=== PATIENT | male | born 1990 | race Caucasian/White ===

== ENCOUNTER 2023-10-11 04:54 | Emergency (ER) | payer BC, SELFPAY ==
--- NOTE | ~2023-10-11 | XR_ITS ---
Left Shoulder Technique: AP and scapular Y views were obtained. Clinical History: Dislocation Findings: There is anteroinferior dislocation of the left humeral head. AC joint intact. No fracture evident. Soft tissues are unremarkable. Impression: Anteroinferior dislocation of the left humeral head. Reviewed, dictated and finalized at location . INTMENT COORDINATOR Impression: Anteroinferior dislocation of the left humeral head.
--- NOTE | ~2023-10-11 | XR_ITS ---
Left Shoulder Technique: AP and scapular Y views were obtained. Clinical History: Post reduction COMPARISON: 10/11/2023 at 5:21 AM Findings: Previously noted dislocation appears to been successfully reduced. Osseous alignment appear s anatomic.. The glenohumeral and acromioclavicular joint spaces are preserved. Soft tissues are unre markable. Impression: Successful reduction of previously noted humeral head dislocation. No fracture or dislocation seen cu rrently. Reviewed, dictated and finalized at location M. DISHWASHER Impression: Successful reduction of previously noted humeral head dislocation. No fracture or dislocation seen currently.
[2023-10-11 04:58] VITALS: BP 131/92; PULSE 74; RESP 16; TEMP 36.8; O2SAT 94
--- NOTE | 2023-10-11 05:45 | ED.UPPEXIN ---
HPI - Extremity Injury (Upper) General Chief Complaint: Extremity Injury, Upper Stated Complaint: dislocated left shoulder Time Seen by Provider: 10/11/23 05:02 Source: patient Mode of arrival: ambulatory Limitations: no limitations History of Present Illness HPI narrative: this is a 33-year-old male presents with some left shoulder dislocation no known injuries had a dislocation 7 days prior and had reduced in the ER at [facility]. Patient this evening 1 was sleeping and felt his shoulder pop back out of place and became dislocated. There is no known injuries there is no numbness or tingling has a strong brisk radial pulse on the left. Has decreased range of motion secondary to her shoulder pain and dislocation. complaint: injury to: left Onset (ago): hour(s) Other Extremity Injury: Left: shoulder ( left shoulder dislocated) Handedness: right Place: home Severity: moderate Severity scale (1-10): 5 Relieving factors: immobilization Exacerbating factors: movement of extremity Related Data Home Medications Medication Instructions Recorded Confirmed No Home Medications 10/11/23 10/11/23 Allergies Allergy/AdvReac Type Severity Reaction Status Date / Time No Known Allergies Allergy Verified 10/11/23 04:59 Review of Systems Review of Systems: All systems reviewed & are unremarkable except as noted in HPI and below PMFSH Past Medical History Medical History Patient denies medical problems Exam Const: General: healthy appearing Nutritional Appearance: well nourished Orientation/consciousness: patient oriented x3 Limitations: no limitations Neck: Neck: normal visual inspection Chest: Chest palpation & inspection: normal inspection of the chest Resp: Effort & Inspection: normal respiratory effort Auscultation: clear to auscultation bilaterally Cardio: Rate: regular rate Rhythm: regular rhythm Neuro: General: patient oriented x3 Extrem: Other: dislocation of left shoulder Course Course Emergency Course: x-ray performed shows anterior dislocation of the left shoulder, procedure to pop shoulder back into place successful patient tolerated procedure well post reduction x-ray shows proper location of the left shoulder. Vital Signs Vital signs: Vital Signs Oxygen Delivery Room Air 10/11/23 04:55 Temperature 36.8 C 10/11/23 04:58 Pulse Rate 74 10/11/23 04:58 Respiratory Rate 16 10/11/23 04:58 Blood Pressure 131/92 H 10/11/23 04:58 Pulse Oximetry 94 10/11/23 04:58 Oxygen Delivery Room Air 10/11/23 04:58 Procedures Orthopedic Joint Reduction Joint #1: Orthopedic Joint Reduction Date: 10/11/23 Orthopedic Joint Reduction Time: 05:51 Joint Reduction Location: shoulder Analgesia: none Pre-Procedure Neuro Vascular Exam: normal Shoulder Technique Used (if applicable): traction/counter-traction Technique used: traction/counter-traction Post-reduction neuro exam: intact Post-reduction vascular: intact Post Reduction X-Ray Obtained: Yes Post Reduction X-Ray Results: reduced Splint Applied: Yes Patient Tolerated Procedure: well Critical Care Time Critical Care Time Critical Care Time: No Discharge Plan Discharge Clinical Impression: Dislocation of shoulder region Qualifiers: Encounter type: initial encounter Laterality: left Qualified Code(s): S43.005A - Unspecified dislocation of left shoulder joint, initial encounter Patient Disposition: Home, Self-Care Condition: Stable Instructions: Antibiotic Form, How to Use a Sling (ED) Additional Instructions: Advised to follow-up with primary / ortho for further evaluation and treatment, can take Tylenol or Motrin Prescriptions: No Action No Home Medications Follow-up/Referrals: UNKNOWN,DOCTOR [Primary Care Provider] - Time of Disposit
--- NOTE | 2023-10-11 05:47 | PC.NURSE ---
left shoulder was reduced per erp. pt denies any numbness or tingling. shoulder immobilizer in place. +pms post application and manipulation. pt tolerated well. pt declined any medication prior to procedure.
[2023-10-11 06:02] VITALS: BP 115/69; PULSE 62; RESP 18; O2SAT 99
== END 2023-10-11 06:02 | disposition home or self-care (01) ==
PROVIDERS: Emergency Provider Emergency Medicine
DX: S43.005A Unspecified dislocation of left shoulder joint, initial encounter (principal); X58.XXXA Exposure to other specified factors, initial encounter
CPT/HCPCS: 23650; 73030; 99285; L3670